=== PATIENT | female | born 1965 ===

== ENCOUNTER → 2021-01-20 | Outpatient (CLI) | payer OTHER | END | disposition home or self-care (01) | LOC: NUCLEAR 07:00 | DX: E05.91 Thyrotoxicosis, unspecified with thyrotoxic crisis or storm (principal) | CPT/HCPCS: 78012; A9531 ==

== ENCOUNTER 2021-01-21 07:20 | Outpatient (CLI) | payer OTHER | END 2021-01-21 07:28 | disposition home or self-care (01) | LOC: NUCLEAR 07:20 | PROVIDERS: ATTEND Internal Medicine Endocrinology, Diabetes & Metabolism | DX: E05.91 Thyrotoxicosis, unspecified with thyrotoxic crisis or storm (principal) | CPT/HCPCS: 78013; A9512 ==